=== PATIENT | male | born 1955 | race Caucasian/White ===

== ENCOUNTER 2023-12-28 12:32 | Inpatient (IN) | payer BC ==
[~2023-12-28] VITALS: Ht 175.3 cm; Wt 81.6 kg
[2023-12-28] MEDS ORDERED: methylPREDNISolone Sod Succ 125 MG/2 ML VIAL IV ONE (15:00)
[2023-12-28] MEDS ORDERED: NS 1,000 ML IV ONE (15:00)
[2023-12-28 15:23] LABS: BASO # 0.1 K/mm3 (0.0-0.2); BASO % 0.6 % (0.0-2.0); EOS # 0.3 K/mm3 (0.0-0.7); EOS % 3.8 % (0.0-4.0); GRAN # 5.5 K/mm3 (1.4-6.5); GRAN % 70.2 % (42.2-75.2); HEMATOCRIT 46.5 % (42.0-52.0); HEMOGLOBIN 15.7 g/dl (13.5-18.0); LYMPH # 1.1 K/mm3 (1.2-3.4); LYMPH % 14.5 % (20.0-51.0); MEAN CELL VOLUME 95 fl (80.0-100.0); MEAN CORPUSCULAR HEMOGLOBIN 32 pg (27-31); MEAN CORPUSCULAR HGB CONC 34 g/dl (33.0-37.0); MEAN PLATELET VOLUME 8.4 fl (7.4-10.4); MONO # 0.8 K/mm3 (0.1-0.6); MONO % 10.4 % (1.7-9.3); PLATELET COUNT 281 K/mm3 (130-400); RED BLOOD COUNT 4.91 M/mm3 (4.20-5.60); REDCELL DISTRIBUTION WIDTH-CV 13.2 % (11.5-14.5)
[2023-12-28 15:33] LABS: INR 1.1 (0.8-3.0); PROTHROMBIN TIME 12.3 SECONDS (9.7-12.8)
[2023-12-28 15:43] LABS: ALANINE AMINOTRANSFERASE 25 U/L (0-55); ALBUMIN 3.5 gm/dL (3.4-4.8); ALKALINE PHOSPHATASE 70 U/L (40-150); ANION GAP 11 mmol/L (7-16); AST,SGOT 24 U/L (5-34); BILIRUBIN,TOTAL 0.7 mg/dL (0.2-1.2); BLOOD UREA NITROGEN 17 mg/dL (8-26); CALCIUM 9.4 mg/dL (8.4-10.2); CARBON DIOXIDE 21 mmol/L (23-31); CHLORIDE 106 mmol/L (98-107); CREATININE, serum 0.79 mg/dL (0.72-1.25); GLUCOSE 120 mg/dL (70-99); MAGNESIUM 1.8 mg/dL (1.6-2.6); POTASSIUM 4.5 mmol/L (3.5-4.5); SODIUM 138 mmol/L (136-145); TOTAL PROTEIN 6.4 gm/dL (6.2-8.1)
[2023-12-28 15:56] LABS: TROPONIN-I < 0.010 ng/mL (0.00-0.033)
[2023-12-28] MEDS ORDERED: 1/2 NS 1,000 ML IV SCH (16:45)
[2023-12-28] MEDS ORDERED: hydrOXYzine HCl 25 MG TAB PO PRN (16:45)
[2023-12-28 16:46] LABS: COLLECTION METHOD CLEAN CATCH
[2023-12-28] MEDS ORDERED: FARXIGA5 PO (16:53)
[2023-12-28] MEDS ORDERED: PRINIVIL10 MG PO (16:53)
[2023-12-28] MEDS ORDERED: GLUCOPHAGE500 MG/TAB PO (16:54)
[2023-12-28] MEDS ORDERED: CELLCEPT 5500 MG/TAB PO (16:54)
[2023-12-28] MEDS ORDERED: MESTINON 6060 MG/TAB PO (16:55)
[2023-12-28] MEDS ORDERED: PRAVACHOL 40MG40 MG PO (16:55)
[2023-12-28] MEDS ORDERED: diphenhydrAMINE 25 MG CAP PO PRN (17:00)
[2023-12-28] MEDS ORDERED: Acetaminophen 500 MG TAB PO PRN (17:00)
[2023-12-28] MEDS ORDERED: Insulin Aspart (NovoLOG) SQ SCH (17:00)
[2023-12-28] MEDS ORDERED: Dextrose (Glucose) 15 GM (4 x 3.75 GM) Chewable TABLET PACK PO PRN (17:15)
[2023-12-28] MEDS ORDERED: Glucagon 1 MG VIAL IM PRN (17:15)
[2023-12-28] MEDS ORDERED: Dextrose 50% Water 25 GM/50 ML SYRINGE IV PRN (17:15)
[2023-12-28 17:37] LABS: PH 5.5 (5.0-8.5); URINE APPEARANCE Hazy (CLEAR/HAZY); URINE COLOR Yellow (YELLOW); URINE GLUCOSE 2+ (NEGATIVE); URINE KETONE 3+ (NEGATIVE); URINE PROTEIN(semi-quant) Negative (BEGATIVE)
[2023-12-28 17:38] LABS: URINE BACTERIA Occasional /hpf (NONE SEEN); URINE BLOOD Negative (NEGATIVE); URINE NITRATE Negative (NEGATIVE); URINE UROBILINOGEN 0.2 E.U/dL (0.2-1.0)
[2023-12-28 17:39] LABS: MUCOUS Present (NOT PRESENT); SQUAMOUS EPITHELIAL None Seen /hpf (0-10); URINE RBC None Seen /hpf (0-2)
[2023-12-28 18:07] VITALS: BP 148/77; PULSE 113; TEMP 98.3
--- NOTE | 2023-12-28 18:40 | NUR ---
Patient arrived to the medical unit room 305, alert and orieted x 4, VSS, denies any pain or itchiness. Assessment intake completed.
--- NOTE | 2023-12-28 18:56 | NUR ---
PATIENT RESTING IN BED WITH TV OFF WITH NO ACUTE DISTRESS NOTED. PATIENT ON ROOM AIR. DINNER TRAY ARRIVED AND SET UP FOR PATIENT. 1/2 NS AND ZOSYN INFUSING INTO LEFT AC WITH NO COMPLICATIONS NOTED. PATIETN CARE ASSUMED FROM LISA SMALLS AT THIS TIME. PATIENT DENIES ANY NEEDS. BED IN LOW POSITION WITH WHEELS LOCKED WITH RAILS UP X2 AND CALL LIGHT WITHIN REACH.
--- NOTE | 2023-12-28 21:10 | NUR ---
PATIENT RESTING IN BED WITH TV OFF WITH NO FAMILY PRESENT WITH NO ACUTE DISTRESS NOTED. PATIENT ON ROOM AIR. 1/2 NS AND ZOSYN INFUSING IN TO LEFT AC WITH NO COMPLICATIONS NOTED. ASSESSMENT AND MEDICAION ADMINISTRATION COMPLETED AT THIS TIME. PATIENT TOLERATED WELL. PATIENT REQUESTED PUDDING FOR NIGHT TIME SNACK AND WAS GIVEN. ALL NEEDS MET. BED IN LOW POSITION WITH WHEELS LOCKED WITH RAILS UP X2 AND CALL LIGHT WITHIN REACH.
[2023-12-28 23:01] VITALS: BP 103/54; PULSE 111; TEMP 98.3
[2023-12-29] VITALS (13 sets, daily range): BP systolic 100–142; BP diastolic 50–79; PULSE 90–105; TEMP 97.5–98
[2023-12-29] MEDS ORDERED: dexAMETHasone 10 MG/ML VIAL IV SCH (07:00)
[2023-12-29 07:11] LABS: BASO % 0.4 % (0.0-2.0); GRAN # 4.3 K/mm3 (1.4-6.5); GRAN % 78.6 % (42.2-75.2); HEMATOCRIT 37.9 % (42.0-52.0); LYMPH # 0.9 K/mm3 (1.2-3.4); LYMPH % 15.5 % (20.0-51.0); MEAN CELL VOLUME 93 fl (80.0-100.0); MEAN CORPUSCULAR HEMOGLOBIN 31 pg (27-31); MEAN CORPUSCULAR HGB CONC 34 g/dl (33.0-37.0); MEAN PLATELET VOLUME 8.9 fl (7.4-10.4); MONO # 0.3 K/mm3 (0.1-0.6); MONO % 5.3 % (1.7-9.3); PLATELET COUNT 255 K/mm3 (130-400); RED BLOOD COUNT 4.08 M/mm3 (4.20-5.60); REDCELL DISTRIBUTION WIDTH-CV 12.9 % (11.5-14.5)
[2023-12-29 07:18] LABS: ALBUMIN 2.7 gm/dL (3.4-4.8); BILIRUBIN,TOTAL 0.6 mg/dL (0.2-1.2); CALCIUM 8.4 mg/dL (8.4-10.2); CREATININE, serum 0.79 mg/dL (0.72-1.25); MAGNESIUM 1.9 mg/dL (1.6-2.6); POTASSIUM 4.4 mmol/L (3.5-4.5); TOTAL PROTEIN 5.2 gm/dL (6.2-8.1)
[2023-12-29 07:19] LABS: HEMOGLOBIN 12.8 g/dl (13.5-18.0)
[2023-12-29] MEDS ORDERED: GLUCOPHAGE XR500 M1 PO ×2 (08:02→08:26)
[2023-12-29] MEDS ORDERED: Lisinopril 10 MG TAB PO SCH (09:00)
--- NOTE | 2023-12-29 09:27 | NUR ---
PATIENT ALERT AND ORIENTED X4. VSS. PATIENT HERE FOR FULL BODY RASH. PATIENT DENIES NEED FOR ANY PRN BENADRYL OR ATARAX. PATIENT EATING BREAKFAST. DENIES ANY PAIN THIS MORNING. IV TO LEFT AC WITH 1/2 NS @75 AND SLOW ZOSYN INFUSING. NO FURTHER NEEDS. CALL LIGHT IN REACH.
--- NOTE | 2023-12-29 14:57 | NUR ---
slag production worker and SW Student, Asmita, met with patient to discuss discharge planning. Patient lives in [place] with his sister, Ashley, P# [phone]. PCP is Dr. Dawson, Pharmacy is [facility] in [place]. No issues affording medications. Patient has BCBS as insurance. Patient did not have a DPOA-HC but requested assistance with completing one during his hospital stay. SW assisted patient with completing this form. SW and SW Student witnessed patient's signature. SW made copies, place a copy in the chart and provided the original and copies to the patient. Patient has a CPAP at home. Reports to be independent with ADLS and has a form of transportation for appointments. Patient would like to return home at time of discharge. Discharge plan: Home
--- NOTE | 2023-12-29 16:44 | NUR ---
Assumed care of patient at approximately 1115. Assessment completed. Pt had diffuse rash over entirety of body- sloughing white flaky dry skin. Denies pain.
--- NOTE | 2023-12-29 18:23 | NUR ---
D: initial visit: Director Religious Education stopped by room on rounds. Pt was resting and content. A: Pt has no needs right now. Pt informed career and guidance counselor that his tailercpa was on his way up. P: Director Religious Education informed pt that if he needed anything from the career and guidance counselor area to let his nurse know. Director Religious Education will follow up as needed.
--- NOTE | 2023-12-29 18:52 | NUR ---
PATIENT RESTING IN BED WATCHING TV AT THIS TIME WITH NO ACUTE DISTRESS NOTED. PATIENT ON ROOM AIR. 1/2 NS AND ZOSYN INFUSING INTO LEFT AC WITH NO COMPLICATIONS NOTED. PATIENT CARE ASSUMED FROM ANAHY AT THIS TIME. PATIENT DENIES ANY NEEDS. BED IN LOW POSITION WITH WHEELS LOCKED WITH RAILS UP X2 AND CALL LIGHT WITHIN REACH.
--- NOTE | 2023-12-29 19:30 | NUR ---
PATIENT RESTING IN BED WITH TV OFF WITH NO ACUTE DISTRESS NOTED. PATIENT ON ROOM AIR. 1/2 NS INFUSING INTO LEFT AC WITH NO COMPLICATIONS NOTED. ASSESSMENT COMPLETED. PATIENT TOLERATED WELL. PATIENT DENIES ANY NEEDS AT THIS TIME. BED IN LOW POSITION WITH WHEELS LOCKED WITH RAILS UP X2 AND CALL LIGHT WITHIN REACH.
--- NOTE | 2023-12-29 20:45 | NUR ---
PATIENT RESTING IN BED WITH NO ACUTE DISTRESS NOTED. PATIENT ON ROOM AIR. MEDICATION ADMINISTRATION COMPLETED AT THIS TIME. PATIENT TOLERATED WELL. PATIENT GIVEN STRAWBERRY ICE CREAM PER PRIOR REQUEST FOR NIGHT TIME SNACK. PATIENT DENIES ANY OTHER NEEDS AT THIS TIME. BED IN LOW POSITION WITH WHEELS LOCKED WITH RAILS UP X2 AND CALL LIGHT WITHIN REACH.
[2023-12-30 03:10] VITALS: BP 104/54; PULSE 85; TEMP 97.4
[2023-12-30 04:00] VITALS: BP_SYST 104
[2023-12-30 07:53] LABS: BASO % 0.2 % (0.0-2.0); EOS % 0.1 % (0.0-4.0); GRAN % 81.2 % (42.2-75.2); HEMATOCRIT 38.7 % (42.0-52.0); HEMOGLOBIN 12.9 g/dl (13.5-18.0); LYMPH # 1.1 K/mm3 (1.2-3.4); LYMPH % 13.1 % (20.0-51.0); MEAN CELL VOLUME 96 fl (80.0-100.0); MEAN CORPUSCULAR HEMOGLOBIN 32 pg (27-31); MEAN CORPUSCULAR HGB CONC 33 g/dl (33.0-37.0); MEAN PLATELET VOLUME 8.7 fl (7.4-10.4); MONO # 0.4 K/mm3 (0.1-0.6); MONO % 4.9 % (1.7-9.3); PLATELET COUNT 257 K/mm3 (130-400); RED BLOOD COUNT 4.03 M/mm3 (4.20-5.60); REDCELL DISTRIBUTION WIDTH-CV 13.2 % (11.5-14.5)
[2023-12-30 08:10] LABS: CALCIUM 8.3 mg/dL (8.4-10.2); CREATININE, serum 0.75 mg/dL (0.72-1.25); POTASSIUM 4.2 mmol/L (3.5-4.5)
[2023-12-30 08:17] VITALS: BP 152/81; PULSE 96; TEMP 97.5
[2023-12-30 09:43] VITALS: BP_SYST 152
[2023-12-30 12:07] VITALS: BP 145/81; PULSE 92; TEMP 97.6
[2023-12-30] MEDS ORDERED: PREDNISONE20 MG PO (12:17)
--- NOTE | 2023-12-30 12:58 | NUR ---
Initial visit; Patient welcomed Senior Training Specialist who introduced herself and inquired as to how patient was doing. He said he was better, his rash that he came in the hospital is better. When Senior Training Specialist inquired if he would like prayer, Nayak stated that his Piano Regulator Inspector had visited him yesterday so he was fine. Senior Training Specialist said, "Yes, he is probably covered." Senior Training Specialist wished him a rapid recovery.
[2023-12-30 13:00] VITALS: BP_SYST 145
--- NOTE | 2023-12-30 15:30 | NUR ---
Assessment completed this am. Pt skin red with white flaky sloughing on body. INT d/c'd with cath tip intact. Reviewed discharge instructions- patient verbalizes understanding. Pt escorted to private vehcile and discharged home.
[2023-12-31] MEDS ORDERED: PROVENTIL0.09 MG/A1 IH (12:30)
== END 2023-12-30 16:31 | disposition home or self-care (01) | DRG 607 ==
LOC: COL.ER 12:32 → MEDICAL 16:09 → EDBEDREQ 17:32 → MEDICAL 12-30 16:31
PROVIDERS: Internal Medicine; Physician Assistant; ADMIT Internal Medicine
DX: L53.9 Erythematous condition, unspecified (principal); E87.20 Acidosis, unspecified; E11.9 Type 2 diabetes mellitus without complications; G70.00 Myasthenia gravis without (acute) exacerbation; I10 Essential (primary) hypertension; E78.5 Hyperlipidemia, unspecified; T50.Z15A Adverse effect of immunoglobulin, initial encounter
CPT/HCPCS: J1100; J1815; J2543; J2930; J7030

== ENCOUNTER 2023-12-31 10:58 | Emergency (ER) | payer BC ==
[~2023-12-31] VITALS: Ht 175.3 cm; Wt 79.5 kg
[~2023-12-31 10:58] MED LIST: CELLCEPT 5500 MG/TAB PO; FARXIGA5 PO; GLUCOPHAGE XR500 M1 PO; GLUCOPHAGE500 MG/TAB PO; MESTINON 6060 MG/TAB PO; PRAVACHOL 40MG40 MG PO; PREDNISONE20 MG PO; PRINIVIL10 MG PO
[2023-12-31] MEDS ORDERED: NS 1,000 ML IV ONE (11:30)
[2023-12-31] MEDS ORDERED: Iohexol 350 - 100 ML VIAL IV ONE (12:01)
[2023-12-31] MEDS ORDERED: NS 100 ML IV SCH (12:02)
[2023-12-31 12:03] LABS: BASO % 0.4 % (0.0-2.0); EOS # 0.1 K/mm3 (0.0-0.7); EOS % 1.4 % (0.0-4.0); GRAN # 5.7 K/mm3 (1.4-6.5); GRAN % 67.5 % (42.2-75.2); HEMATOCRIT 43.7 % (42.0-52.0); HEMOGLOBIN 14.2 g/dl (13.5-18.0); LYMPH # 1.5 K/mm3 (1.2-3.4); LYMPH % 17.6 % (20.0-51.0); MEAN CELL VOLUME 98 fl (80.0-100.0); MEAN CORPUSCULAR HEMOGLOBIN 32 pg (27-31); MEAN CORPUSCULAR HGB CONC 33 g/dl (33.0-37.0); MEAN PLATELET VOLUME 8.7 fl (7.4-10.4); MONO # 1.1 K/mm3 (0.1-0.6); MONO % 12.6 % (1.7-9.3); PLATELET COUNT 307 K/mm3 (130-400); RED BLOOD COUNT 4.48 M/mm3 (4.20-5.60); REDCELL DISTRIBUTION WIDTH-CV 13.2 % (11.5-14.5)
[2023-12-31 12:14] LABS: ALBUMIN 3.6 gm/dL (3.4-4.8); BILIRUBIN,TOTAL 0.4 mg/dL (0.2-1.2); CALCIUM 8.8 mg/dL (8.4-10.2); CREATININE, serum 0.74 mg/dL (0.72-1.25); POTASSIUM 3.7 mmol/L (3.5-4.5); TOTAL PROTEIN 6.3 gm/dL (6.2-8.1)
[2023-12-31] MEDS ORDERED: Albuterol/Ipratropium 3 MG-0.5 MG/3 ML Neb Soln IH ONE (12:15)
[2023-12-31] MEDS ORDERED: dexAMETHasone 10 MG/ML VIAL IV ONE (12:30)
[2023-12-31] MEDS ORDERED: PROVENTIL0.09 MG/A1 IH (12:30)
[2023-12-31 13:06] VITALS: BP 156/78; PULSE 91
== END 2023-12-31 13:10 | disposition home or self-care (01) ==
LOC: COL.ER 10:58
PROVIDERS: Family Medicine
DX: F45.8 Other somatoform disorders (principal)
CPT/HCPCS: J1100; J7030; Q9967